=== PATIENT | female | born 1980 | race Caucasian/White ===

== ENCOUNTER 2021-03-20 16:34 | Outpatient (CLI) | payer OTHER, SELFPAY ==
--- NOTE | ~2021-03-20 | MM_ITS ---
EXAMINATION: MM screening link BI w lorena HISTORY: Screening TECHNIQUE: Craniocaudal and mediolateral oblique 3-D tomosynthesis images were obtained and synthetic 2-D images were generated. CAD analysis was submitted and interpreted. COMPARISON: No prior mammogram is available for comparison at this institution. BREAST PARENCHYMAL COMPOSITION: The breasts are heterogeneously dense, which may obscure small masses . FINDINGS: There is no evidence of suspicious mass, calcification, or architectural distortion to sugg est malignancy in either breast. There has been no suspicious interval change. IMPRESSION: 1. No mammographic evidence of malignancy. 2. Recommend routine screening mammography in one year. BI-RADS Category 1: Negative Reviewed, dictated and finalized at location A.
== END 2021-03-20 16:35 | disposition home or self-care (01) ==
PROVIDERS: PCP Nurse Practitioner Adult Health; Visit Provider Obstetrics & Gynecology
DX: Z12.31 Encounter for screening mammogram for malignant neoplasm of breast (principal)
CPT/HCPCS: 77063; 77067

== ENCOUNTER 2021-07-28 11:18 | Emergency (ER) | payer OTHER, SELFPAY ==
[2021-07-28 11:39] VITALS: BP 124/59; PULSE 90; RESP 18; TEMP 37.3; O2SAT 100
--- NOTE | 2021-07-28 12:27 | ED.EXTPRO ---
HPI - Extremity Problem General Chief complaint: Extremity Problem,Nontraumatic Stated complaint: Lt Shoulder Pain Time Seen by Provider: 07/28/21 12:27 Source: patient, family and RN notes reviewed Mode of arrival: ambulatory Limitations: no limitations History of Present Illness HPI Narrative: Soco is a 41-year-old female who arrives ambulatory at the [facility] today with complaint of left shoulder pain for the last 6 weeks. She denies any injury. States she woke up with the pain. She states she is had tingling in her left arm for the last 2 weeks movement and sensation are intact. Patient states she is been taking Motrin 800 mg 3 times a day for the last 4 weeks, using a heating pad, icy hot patches, with some relief. She states the pain is worse when she is laying; she states in the morning the pain can be as bad as a 6 out of 10 during the day it can be a 2/10 Related Data Home Medications Medication Instructions Recorded Confirmed multivitamin 1 tablet PO DAILY 05/23/20 07/28/21 levothyroxine [Synthroid] 112 mcg PO DAILY 07/28/21 07/28/21 Allergies Allergy/AdvReac Type Severity Reaction Status Date / Time naproxen Allergy Mild hives, Verified 07/28/21 12:36 itching Review of Systems Review of Systems: CONSTITUTIONAL: Denies body aches, fever, chills, or sweats. EYES: Denies visual changes, redness, or discharge. ENT: Denies rhinorrhea, congestion, sore throat, or otalgia. CARDIOVASCULAR: Denies chest pain, palpitations, or edema. RESPIRATORY: Denies cough or dyspnea. GASTROINTESTINAL: Denies abdominal pain, nausea, vomiting, or diarrhea. GENITOURINARY: Denies dysuria or hematuria. SKIN: Denies rash, itching, or wounds. MUSCULOSKELETAL: Denies back pain, + left shoulder pain, NEUROLOGIC: Denies headache, numbness,+ tingling, denies weakness. PSYCH: Denies depression or anxiety. Today All systems reviewed & are unremarkable except as noted in HPI and below PMFSH Past Medical History Medical History Suki's disease Hypothyroidism Vaginal delivery 08-28-08, , full term, female, 6#1 12-26-11, , full term, female, 6#5 Wellness examination Surgical History Surgical History Kathleen teeth extracted Family History Family History Mother Diabetes mellitus Grandparent Cerebrovascular accident Acute myocardial infarction Social History Social History Smoking status: Never smoker Alcohol intake: current Drinks per week: 1 Substance use: never Comments At time of signature, I have reviewed and agree with nursing past medical, surgical, social and family history unless otherwise noted. Please see nursing chart for further information. There is no relevant family history pertinent to the presenting complaint Exam Narrative: GENERAL: Well-appearing, well-nourished, and in no acute distress. HEAD: Normocephalic, atraumatic. EYES: EOMI. No redness or drainage. Conjunctivae normal. ENT: Mucous membranes pink and moist. Nares clear. No rhinorrhea. TMs normal bilaterally. NECK: Normal AROM. Supple. MUSCULOSKELETAL: No bony tenderness. EXTREMITIES: Pain with palpation to left trapezius muscle, negative Tinel's sign and phalen test. SKIN: Warm, dry, no rash. Capillary refill normal. Normal skin turgor. NEURO: No focal deficits. Alert and oriented x3. Gait steady. PSYCH: Normal affect. No signs of depression or anxiety. Course Vital Signs Vital signs: Vital Signs Temperature 37.3 C 07/28/21 11:39 Pulse Rate 90 07/28/21 11:39 Respiratory Rate 18 07/28/21 11:39 Blood Pressure 124/59 L 07/28/21 11:39 Pulse Oximetry 100 07/28/21 11:39 Temperature 37.3 C 07/28/21 11:39 Pulse Rate 90 07/28/21 11:39 Respiratory Rate 18 07/18
== END 2021-07-28 12:48 | disposition home or self-care (01) ==
PROVIDERS: Emergency Provider Nurse Practitioner Family; PCP Nurse Practitioner Adult Health
DX: S46.912A Strain of unspecified muscle, fascia and tendon at shoulder and upper arm level, left arm, initial encounter (principal); E06.3 Autoimmune thyroiditis; E03.9 Hypothyroidism, unspecified
CPT/HCPCS: 99213; G0463

== ENCOUNTER → 2021-09-24 15:44 | Outpatient (CLI) | payer OTHER, SELFPAY ==
--- NOTE | ~2021-09-24 | MR_ITS ---
EXAMINATION: MR cervical spine wo con DATE: 09/24/2021 16:52 INDICATION: Cervical radiculopathy TECHNIQUE: Magnetic resonance imaging (MRI) of the cervical spine was performed without intravenous c ontrast. Sequences included sagittal T2-weighted FSE, sagittal T2-weighted FS FSE, sagittal T1-weight ed FSE, axial MERGE and axial T2-weighted FSE. COMPARISON: None FINDINGS: Straightening of the normal cervical lordosis. No spondylolisthesis or facet subluxation. Vertebral body heights are normal. Bone marrow signal intensity is normal. Mild disc height loss at C4-C5, C5- C6 and C6-C7 Cord signal intensity is normal. Cervical soft tissues are unremarkable. The following d isc levels are specifically discussed: C2-C3: The disc does not extend beyond the endplate margin. There is no uncovertebral joint osteoarth ritis. There is moderate right and mild left facet joint osteoarthritis. There is no neural foraminal stenosis. There is no central canal stenosis. C3-C4: Disc is minimally bulging. There is mild bilateral uncovertebral joint osteoarthritis. There i s moderate bilateral facet joint osteoarthritis. There is no neural foraminal stenosis. There is mild right and minimal left central canal stenosis. C4-C5: Disc is bulging with superimposed annular fissure and small central disc extrusion with disc m aterial extending couple millimeters cephalad and caudal to the level of the endplates. There is mild left and moderate right uncovertebral joint osteoarthritis. There is moderate left and severe right facet joint osteoarthritis. There is mild right and minimal left neural foraminal stenosis. There is mild central canal stenosis with slight indention of the central to left ventral surface of the cord. C5-C6: Disc is mildly bulging with annular fissure and small left foraminal zone disc extrusion with disc material extending couple millimeter caudal to the level of the superior endplate of C6. There i s mild bilateral uncovertebral joint osteoarthritis. There is mild left and moderate right facet join t osteoarthritis. There is mild left and minimal right neural foraminal stenosis. There is mild centr al canal stenosis with slight flattening of the left ventral surface of the cord. C6-C7: Disc is bulging with annular fissure and left paracentral disc extrusion which extends caudall y along the left lateral recess 8 mm caudal to the level of the superior endplate of C7. At the level of the caudal aspect of the C6-C7 neural foramen the extrusion measures 8 x 5 mm transaxial dimensio ns. There is mild right and moderate left uncovertebral joint osteoarthritis. There is mild bilateral facet joint osteoarthritis. There is mild to moderate bilateral neural foraminal stenosis. There is mild to moderate central canal stenosis measuring 7 mm AP in the mid sagittal plane and deforming the cord with effacement of the majority of the surrounding CSF signal. C7-T1: The disc does not extend beyond the endplate margin. There is mild bilateral uncovertebral elan nt osteoarthritis. There is moderate bilateral facet joint osteoarthritis. There is mild to moderate bilateral neural foraminal stenosis. There is no central canal stenosis. IMPRESSION: 1. Mild cervical spondylosis most notable for large disc extrusion arising from C6-C7 extending cauda lly at the left lateral recess and resulting in mild to moderate central canal stenosis. Reviewed, dictated and finalized at location B. FORENSIC IMPRESSION: 1. Mild cervical spondylosis most notable for large disc extrusion arising from C6-C7 extending caudally at the left lateral recess and resulting in mild to m oderate central canal stenosis.
== END ==
PROVIDERS: PCP Nurse Practitioner Adult Health; Visit Provider Orthopaedic Surgery
DX: M47.22 Other spondylosis with radiculopathy, cervical region (principal)
CPT/HCPCS: 72141

== ENCOUNTER → 2023-12-20 08:18 | Outpatient (CLI) | payer OTHER, SELFPAY ==
--- NOTE | ~2023-12-20 | US_ITS ---
EXAMINATION: US thyroid DATE: 12/20/2023 08:33 INDICATION: Hypothyroidism. TECHNIQUE: Multiple ultrasound images of the thyroid were obtained. COMPARISON: Thyroid ultrasound 06/14/2009 FINDINGS: The right thyroid lobe measures 4.0 x 1.5 x 1.4 cm. The left thyroid lobe measures 4.2 x 1.4 x 1.5 c m. The thyroid demonstrates heterogeneous echogenicity. Vascularity is increased. No discrete nodule . IMPRESSION: 1. Heterogeneous, hypervascular thyroid, consistent with chronic lymphocytic (Suki) thyroiditis. Reviewed, dictated and finalized at location E. 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 Heterogeneous, hypervascular thyroid, consistent with chronic lymphocytic (H ashimoto) thyroiditis.
== END ==
PROVIDERS: PCP Internal Medicine; Visit Provider Internal Medicine
DX: E03.9 Hypothyroidism, unspecified (principal); Z86.39 Personal history of other endocrine, nutritional and metabolic disease
CPT/HCPCS: 76536

== ENCOUNTER 2024-04-07 09:18 | Outpatient (CLI) | payer OTHER, SELFPAY ==
[2024-04-07 10:19] LABS: Free T4 Free Thyroxine 1.26 ng/mL (0.78-2.19)
== END 2024-04-07 09:19 | disposition home or self-care (01) ==
LOC: ANHLAB 09:19
PROVIDERS: PCP Internal Medicine; Visit Provider Internal Medicine
DX: E03.9 Hypothyroidism, unspecified (principal)
CPT/HCPCS: 36415; 84439; 84443

== ENCOUNTER 2024-10-13 08:28 | Outpatient (CLI) | payer OTHER, SELFPAY ==
--- NOTE | ~2024-10-13 | MM_ITS ---
EXAMINATION: MM screening link BI w lorena HISTORY: Screening TECHNIQUE: Craniocaudal and mediolateral oblique 3-D tomosynthesis images were obtained and synthetic 2-D images were generated. CAD analysis was submitted and interpreted. COMPARISON: 03/20/2021 BREAST PARENCHYMAL COMPOSITION: The breasts are heterogeneously dense, which may obscure small masses . FINDINGS: Punctate calcifications detected bilaterally, stable and benign in appearance. Stable parenchymal pattern without suspicious microcalcifications, architectural distortion, discrete masses or significant asymmetry. IMPRESSION: 1. No mammographic evidence of malignancy. 2. Recommend routine screening mammography in one year. BI-RADS Category 2: Benign finding(s). Reviewed, dictated and finalized at location A. 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
== END 2024-10-13 08:29 | disposition home or self-care (01) ==
PROVIDERS: PCP Internal Medicine; Visit Provider Nurse Practitioner Family
DX: Z12.31 Encounter for screening mammogram for malignant neoplasm of breast (principal)
CPT/HCPCS: 77063; 77067